=== PATIENT | male | born 1985 | race African-American/Black ===

== ENCOUNTER 2017-02-06 12:11 | Emergency (ER) | payer MEDICAID ==
[2017-02-06 12:56] LABS: BASOPHILS 0.1 % (0-2); HEMATOCRIT 46.8 % (42.0-54.0); IMMATURE GRANULOCYTES 0.1 % (0-5); LYMPHOCYTES 44.9 % (15-50); MCH 32.1 pg (26.0-34.0); MCHC 34.2 g/dL (31.0-37.0); MCV 93.8 fL (80.0-100.0); MONOCYTES 8.5 % (2-11); NEUTROPHILS 44.4 % (40-80); PLATELET COUNT 247 10x3/uL (130-400); RBC 4.99 10x6/uL (4.20-6.10); RDW 12.2 % (11.5-14.5); WBC 8.1 10x3/uL (4.8-10.8)
[2017-02-06 13:17] LABS: APPEARANCE CLEAR (CLEAR); BILIRUBIN NEGATIVE (NEGATIVE); COLOR YELLOW (YELLOW); GLUCOSE NEGATIVE (NEGATIVE); KETONE NEGATIVE (NEGATIVE); LEUKOCYTE ESTERASE NEGATIVE (NEGATIVE); NITRITE NEGATIVE (NEGATIVE); PROTEIN NEGATIVE (NEGATIVE); SPECIFIC GRAVITY 1.005 (1.005-1.020); UROBILINOGEN NORMAL (NORMAL)
[2017-02-06 13:23] LABS: ALKALINE PHOSPHATASE 77 U/L (46-116); ALT (SGPT) 38 U/L (10-68); BILIRUBIN - TOTAL 0.31 mg/dL (0.2-1.3); CALC OSMOLALITY 274 mosm/kg (275-300); CARBON DIOXIDE 27.7 mmol/L (21.0-32.0); CHLORIDE - SERUM 104 mmol/L (98-107); CREATININE - SERUM 0.9 mg/dL (0.6-1.3); GLUCOSE 90 mg/dL (74-106); POTASSIUM - SERUM 3.6 mmol/L (3.5-5.1); PROTEIN - SERUM 7.3 g/dL (6.4-8.2); SODIUM 139 mmol/L (136-145); UREA NITROGEN 5 mg/dL (7-18); eGFR NON AFRICAN AMERICAN > 90 mL/min (90-120)
[2017-02-06 13:25] LABS: CREATINE KINASE 102 UL (21-232)
[2017-02-06 13:34] LABS: TROPONIN-I < 0.017 ng/mL (0.000-0.060)
== END 2017-02-06 15:37 | disposition home or self-care (01) ==
LOC: D.ER 12:11
PROVIDERS: Emergency Medicine; Nurse Practitioner Family
DX: E86.0 Dehydration (principal); R53.1 Weakness; F41.9 Anxiety disorder, unspecified

== ENCOUNTER 2019-08-30 15:59 | Emergency (ER) | payer MEDICAID ==
[~2019-08-30] VITALS: Ht 182.9 cm; Wt 83.6 kg
[2019-08-30 16:09] VITALS: BP 127/85; Ht 182.9 cm; Wt 83.6 kg
[2019-08-30] MEDS ORDERED: PREDNISONE50 MG PO (16:36)
[2019-08-30] MEDS ORDERED: KEFLEX500 MG PO (16:36)
[2019-08-30] MEDS ORDERED: ALBUTEROL SULF8.5 GM INH (16:38)
== END 2019-08-30 17:30 | disposition home or self-care (01) ==
LOC: D.ER 15:59
DX: R06.02 Shortness of breath (principal); J45.909 Unspecified asthma, uncomplicated